=== PATIENT | male | born 1980 | race Caucasian/White ===

== ENCOUNTER 2024-07-28 10:29 | Outpatient (CLI) | payer OTHER | END 2024-07-28 10:30 | disposition home or self-care (01) | LOC: CSHSLEEP 10:29 | PROVIDERS: ATTEND Internal Medicine | DX: G47.33 Obstructive sleep apnea (adult) (pediatric) (principal) | CPT/HCPCS: 95810 ==

== ENCOUNTER 2024-08-22 08:11 | Outpatient (CLI) | payer OTHER | END 2024-08-22 08:12 | disposition home or self-care (01) | LOC: CSHSLEEP 08:11 | PROVIDERS: ATTEND Internal Medicine | DX: G47.33 Obstructive sleep apnea (adult) (pediatric) (principal) | CPT/HCPCS: 95811 ==